=== PATIENT | female | born 1980 | race Caucasian/White ===

== ENCOUNTER 2018-12-27 02:03 | Emergency (ER) | payer OTHER ==
[~2018-12-27] VITALS: Ht 160 cm; Wt 59.0 kg
[2018-12-27 02:08] VITALS: BP 128/81
--- NOTE | 2018-12-27 02:08 | NUR ---
Pt bib [facility] for pre-book, placed in chair E.
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
[2018-12-27] MEDS ORDERED: IBUPROFEN 800 MG TAB PO ONE (02:15)
--- NOTE | 2018-12-27 02:34 | NUR ---
PT TAKEN TO RAD
[2018-12-27 03:10] VITALS: BP 117/78
--- NOTE | 2018-12-27 03:10 | NUR ---
PATIENT MEDICALLY CLEARED AND RELEASED IN CUSTODY TO [facility] IN STABLE CONDITION. ORIGINAL PRE-BOOK FORM GIVEN TO OFFICER FRANTZ. DISCHARGE INSTRUCTIONS PROVIDED AND EXPLAINED TO PATIENT. RX FOR IBUPROFEN 800MG PROVIDED. PT INSTRUCTED TO TAKE MEDICATION NEEDED. PT MADE AWARE NEXT COMING UP DAYS PAIN MAY WORSEN AND TO TAKE PRESCRIBED MEDICATIONS NEEDED. PT VERBALIZED UNDERSTANDING. VSS UPON DISCHARGE. PT RELEASED INTO CUSTODY OF [facility].
== END 2018-12-27 03:10 ==
LOC: MED 02:03
DX: S20.212A Contusion of left front wall of thorax, initial encounter (principal); S20.211A Contusion of right front wall of thorax, initial encounter; F10.929 Alcohol use, unspecified with intoxication, unspecified; Y90.0 Blood alcohol level of less than 20 mg/100 ml; V43.52XA Car driver injured in collision with other type car in traffic accident, initial encounter; Y93.89 Activity, other specified; Y92.488 Other paved roadways as the place of occurrence of the external cause; Y99.8 Other external cause status
CPT/HCPCS: 71111; 99283